=== PATIENT | female | born 1995 | race Caucasian/White ===

== ENCOUNTER 2017-02-15 20:29 | Emergency (ER) | payer MEDICAID, OTHER ==
[~2017-02-15] VITALS: Ht 167.6 cm; Wt 64.4 kg
[2017-02-15 20:40] VITALS: BP_SYST 120
[2017-02-15] MEDS ORDERED: NACL 0.9% 1,000 ML IV ONE (23:03)
[2017-02-15] MEDS ORDERED: KETOROLAC TROMETHAMINE 30 MG VIAL IVP ONE (23:15)
[2017-02-15 23:55] LABS: HEMATOCRIT 41.6 % (36-48); HEMOGLOBIN 13.5 g/dL (12.0-16.0); MEAN CORPUSCULAR HEMOGLOBIN 30 pg (27-31); MEAN CORPUSCULAR HGB CONC 32 % (32-36); MEAN CORPUSCULAR VOLUME 91 fL (79.0-98.0); PLATELET COUNT (AUTO) 163 K/uL (130-430); RED BLOOD CELL COUNT(AUTO) 4.55 MIL/uL (4.2-6.2); RED CELL DISTRIBUTION WIDTH 11.9 % (9.0-15.0); WHITE BLOOD COUNT (AUTO) 9.8 K/uL (4.8-10.8)
[2017-02-16 00:09] LABS: CALCIUM 8.3 mg/dL (8.4-11.0)
[2017-02-16 00:10] LABS: ALBUMIN 3.5 g/dL (3.4-4.8); CREATININE 0.73 mg/dL (0.55-1.30); THYROID STIMULATING HORMONE 1.12 uIu/mL (0.34-4.82); TOTAL BILIRUBIN 0.3 mg/dL (0.0-1.0); TOTAL PROTEIN, SERUM 8.1 g/dL (6.4-8.3)
[2017-02-16 00:15] LABS: BARBITURATE, URINE NEGATIVE (NEG <=200); BENZODIAZEPINE, URINE NEGATIVE (NEG <=150); BILIRUBIN,URINE NEGATIVE (NEGATIVE); BLOOD, URINE NEGATIVE (NEGATIVE); CANNABINOID, URINE NEGATIVE (NEG <=50); CLARITY/URINE HAZY (CLEAR); COCAINE, URINE NEGATIVE (NEG <=150); COLOR,URINE YELLOW (YELLOW); GLUCOSE,URINE NEGATIVE (NEGATIVE); KETONES,URINE NEGATIVE (NEGATIVE); LEUKOCYTE ESTERASE ,URINE NEGATIVE (NEGATIVE); METHAMPHETAMINES SCREEN,URINE NEGATIVE (NEG <=500); NITRITE, URINE NEGATIVE (NEGATIVE); OPIATE, URINE NEGATIVE (NEG <=100); PHENCYCLIDINE SCREEN,URINE NEGATIVE (NEG <=25); PROTEIN URINE TRACE (NEGATIVE); UR TRICYCLIC ANTIDEPRESSANTS NEGATIVE (NEG <=300); URINE AMPHETAMINE NEGATIVE (NEG <=500); URINE METHADONE NEGATIVE (NEG <=200); URINE OXYCODONE SCREEN NEGATIVE (NEG <=100); URINE PROPOXYPHENE SCREEN NEGATIVE (NEG <=300)
[2017-02-16 00:17] LABS: BACTERIA,URINE FEW /HPF (None Seen); MUCUS,URINE None Seen /LPF (None Seen); RBC,URINE NONE SEEN /HPF (0-3); URINE AMORPHOUS PHOSPHATES 2+ /HPF (None Seen); WBC,URINE 0-3 /HPF (0-3)
[2017-02-16 00:23] LABS: BAND % (MANUAL) 6 % (0-6); LYMPHOCYTES % (MANUAL) 49 % (20-46)
[2017-02-16 00:24] LABS: EOSINOPHILS % (MANUAL) 1 % (0-7); MONOCYTES % (MANUAL) 11 % (0-11)
[2017-02-16 00:25] LABS: BASOPHILS % (MANUAL) 0 % (0-2)
[2017-02-16 00:27] LABS: ATYPICAL LYMPHOCYTES % 3 % (0-0)
[2017-02-16 02:01] VITALS: BP_SYST 118
== END 2017-02-16 02:01 | disposition home or self-care (01) ==
LOC: SED 20:29
DX: B34.9 Viral infection, unspecified (principal); J45.909 Unspecified asthma, uncomplicated
CPT/HCPCS: 36415; 71010; 80053; 80307; 81000; 84443; 85007; 85027; 93005; 96361; 96374; 99285; J1885; J7030